=== PATIENT | male | born 1945 | race Asian ===

== ENCOUNTER 2021-10-15 15:19 | Outpatient (CLI) | payer OTHER ==
[2021-10-15 16:10] LABS: PLATELET COUNT 696 K/uL (142-355)
[2021-10-15 16:28] LABS: POTASSIUM 3.8 mmol/L (3.6-5.2)
== END 2021-10-15 19:17 | disposition home or self-care (01) ==
LOC: LABW 15:19
PROVIDERS: ATTEND Internal Medicine
DX: N18.31 Chronic kidney disease, stage 3a (principal); D63.1 Anemia in chronic kidney disease
CPT/HCPCS: 36415; 80053; 81000; 82330; 82570; 82607; 82728; 82746; 83540; 83550; 83735; 83970; 84100; 84155; 85027; 86038

== ENCOUNTER 2021-10-18 07:36 | Outpatient (CLI) | payer OTHER | END 2021-10-18 19:44 | disposition home or self-care (01) | LOC: LABW 07:36 | PROVIDERS: ATTEND Internal Medicine | DX: N18.31 Chronic kidney disease, stage 3a (principal); D63.1 Anemia in chronic kidney disease | CPT/HCPCS: 36415; 85652 ==

== ENCOUNTER 2022-07-12 08:47 | Outpatient (CLI) | payer OTHER ==
[~2022-07-12] VITALS: Ht 175.3 cm; Wt 79.4 kg
== END 2022-07-12 18:56 | disposition home or self-care (01) ==
LOC: NM 08:47
PROVIDERS: ATTEND Nurse Practitioner Adult Health
DX: R06.02 Shortness of breath (principal); R06.09 Other forms of dyspnea; I48.91 Unspecified atrial fibrillation
CPT/HCPCS: A9500; J2785

== ENCOUNTER 2022-07-21 08:40 | Outpatient (CLI) | payer OTHER | END 2022-07-21 19:27 | disposition home or self-care (01) | LOC: RESP 08:40 | PROVIDERS: ATTEND Nurse Practitioner Adult Health | DX: I42.8 Other cardiomyopathies (principal); I34.0 Nonrheumatic mitral (valve) insufficiency; I36.1 Nonrheumatic tricuspid (valve) insufficiency; R06.02 Shortness of breath; I10 Essential (primary) hypertension ==